=== PATIENT | female | born 1965 | race American Indian/Alaskan Native ===

== ENCOUNTER 2019-01-18 08:01 | Emergency (ER) | payer BC ==
[2019-01-18 08:34] LABS: Basophils % (Auto) 0.7 % (0.0-1.8); Eosinophils % (Auto) 0.4 % (0.0-4.3); Hematocrit 38.6 % (30.3-42.9); Lymphocytes % (Auto) 28.5 % (13.4-35.0); Mean Corpuscular HGB Conc 34 % (30-34); Mean Corpuscular Volume 83 fl (79-97); Monocytes # (Auto) 0.4 K/mm3 (0.0-0.8); Monocytes % (Auto) 11.9 % (0.0-7.3); Platelet Count 203 K/mm3 (140-440); Red Blood Count 4.64 M/mm3 (3.65-5.03); Red Cell Distribution Width 13.6 % (13.2-15.2)
[2019-01-18 08:44] LABS: Bilirubin,Urine NEG (Negative); Blood,Urine NEG (Negative); Color,Urine Yellow (Yellow); Mucus,Urine FEW /HPF; Protein,Urine <15 mg/dL mg/dL (Negative); RBC,Urine < 1.0 /HPF (0.0-6.0); Urobilinogen,Urine < 2.0 mg/dL (<2.0)
[2019-01-18 08:55] LABS: Alanine Aminotransferase 27 units/L (7-56); Albumin 4.2 g/dL (3.9-5); BUN/Creatinine Ratio 11; Blood Urea Nitrogen 9 mg/dL (7-17); Calcium 9.3 mg/dL (8.4-10.2); Hemolysis Index 13
--- NOTE | 2019-01-18 09:01 | Emergency Department Report ---
HPI - General Chief Complaint: Abdominal Pain Time Seen by Provider: 01/18/19 08:36 - HPI HPI: 53-year-old after [place] female presents to the emergency department with complaint of a 3-4 day history of some intermittent upper abdominal pain. It is a sharp, twisting-like sensation. She denies any nausea, vomiting, fever, dysuria, vaginal bleeding or discharge. The patient also says that earlier today she had some transient midsternal chest pain. She says that she can bring it on or worsens with certain type of movements of her arm or torso. The abdominal pain does not have any known aggravating or alleviating factors. She has not taken anything for her symptoms prior to presentation. She has a past medical history of hypertension, GERD and palpitations. Her primary care physician is Dr. Taya dobson. No recent travel or sick contacts at home. ED Past Medical Hx - Past Medical History Previous Medical History?: Yes Hx Hypertension: Yes - Surgical History Past Surgical History?: Yes Additional Surgical History: c section x 2 - Social History Smoking Status: Never Smoker Substance Use Type: Prescribed - Medications Home Medications: Home Medications Medication Instructions Recorded Confirmed Last Taken Type oxyCODONE /ACETAMINOPHEN [Percocet 1 tab PO Q6HR PRN #20 tablet 07/22/15 Unknown Rx 5/325] ED Review of Systems ROS: Stated complaint: STOMACH AND CHEST PAIN Other details as noted in HPI Comment: All other systems reviewed and negative Constitutional: denies: chills, fever Eyes: denies: eye pain, vision change ENT: denies: ear pain, throat pain Respiratory: denies: cough, shortness of breath Cardiovascular: chest pain. denies: edema Gastrointestinal: abdominal pain. denies: nausea, vomiting Genitourinary: denies: dysuria, discharge Musculoskeletal: denies: back pain, arthralgia Skin: denies: rash, lesions Neurological: denies: headache, weakness Physical Exam - Physical Exam Vital Signs: Vital Signs 01/18/19 08:04 Temperature 98.8 F Pulse Rate 88 Respiratory 18 Rate Blood Pressure 167/91 O2 Sat by Pulse 99 Oximetry Physical Exam: GENERAL: The patient is well-developed well-nourished. HENT: Normocephalic. Atraumatic. Patient has moist mucous membranes. EYES: Extraocular motions are intact. NECK: Supple. Trachea is midline. CHEST/LUNGS: Clear to auscultation. There is no respiratory distress noted. There is some mild reproducible pain to palpation of the chest wall. No crepitus or deformity. HEART/CARDIOVASCULAR: Regular. There is no tachycardia. There is no murmur. ABDOMEN: Abdomen is soft, nontender. No guarding. Patient has normal bowel sounds. There is no abdominal distention. SKIN: Skin is warm and dry. NEURO: The patient is awake, alert, and oriented. The patient is cooperative. The patient has no focal neurologic deficits. The patient has normal speech. MUSCULOSKELETAL: There is no tenderness or deformity. There is no evidence of acute injury. ED Course Vital Signs 01/18/19 08:04 Temperature 98.8 F Pulse Rate 88 Respiratory 18 Rate Blood Pressure 167/91 O2 Sat by Pulse 99 Oximetry ED Medical Decision Making - Lab Data Result diagrams: 01/18/19 08:15 01/18/19 08:15 - EKG Data -: EKG Interpreted by Me EKG shows normal: sinus rhythm, axis, intervals, QRS complexes, ST-T waves (flattening of T waves) Rate: normal - EKG Data When compared to previous EKG there are: previous EKG unavailable Interpretation: other (flattening of T waves) - Radiology Data Radiology results: report reviewed, image reviewed interpreted by me: Chest x-ray does not show any acute process. There are no pleural effusions, obvious pneumonia and there is no pneumothorax. Abdominal x-ray shows nonspecific nonobstructive bowel gas EXAM: US ABDOMEN COMPLETE HISTORY: Upper abdominal pain TECHNIQUE: Vaca scale imaging, duplex Doppler and color flow Doppler imaging are performed with a curvilinear transducer. COMPARISON: None available. FINDINGS: LIVER: The liver is normal in size. The hepatic parenchyma is mildly echogenic, which may represent mild fatty infiltration. There is no focal hepatic mass or perihepatic ascites seen. SPLEEN: The spleen is normal in size, measuring approximately 6.7 cm. There are no focal splenic lesions seen. GALLBLADDER: There is a trace amount of degenerative sludge within the gallbladder lumen. The gallbladder is otherwise normal in size and echogenicity. There is no gallbladder wall thickening, pericholecystic fluid, or sonographic Brooks's sign appreciated. BILE DUCTS: No intrahepatic or extrahepatic biliary ductal dilatation is seen. The common bile duct measures approximately 2.9 mm. KIDNEYS: Both kidneys are normal in size and echogenicity. The right kidney measures approximately 9.7 cm x 4.3 cm x 5.8 cm, and the left kidney measures approximately 10 cm x 5.9 cm x 4.9 cm. The renal cortical thickness is normal bilaterally, measuring approximately 1.5 cm bilaterally. There is no hydronephrosis, shadowing calculus, renal mass, or perinephric fluid collections seen. MISCELLANEOUS: The aorta (1.6 cm AP diameter) and inferior vena cava are normal in size and contour. The pancreas is grossly unremarkable. IMPRESSION: 1. Trace amount of echogenic sludge within otherwise normal-appearing gallbladder; no evidence for cholelithiasis. Consider follow-up evaluation with HIDA scan to rule out cystic duct obstruction and acute cholecystitis as clinically warranted. 2. Mildly echogenic hepatic parenchyma which may represent mild hepatic steatosis. 3. Otherwise unremarkable abdominal ultrasound. This document is electronically signed by Lisa Ta MD., January 18 2019 10:36:10 AM ET Transcribed By: ASM Dictated By: LISA TA Electronically Authenticated By: LISA TA Signed Date/Time: 01/18/19 1037 - Medical Decision Making This patient presents to the emergency department with a complaint of some right middle to upper abdominal pain that she describes as a twisting sensation. She also describes some previous chest pain that she had that has since resolved. Vital signs stable throughout her ED course. Patient's labs were unremarkable including CBC, metabolic panel, troponin, belly labsand urinalysis. Chest x-ray did not show any focal consolidation, pneumothorax, pneumonia, pleural effusions, or any other acute process. Abdominal x-ray shows nonspecific nonobstructive bowel gas. An upper abdominal ultrasound showed some mild residual possible gallbladder sludge but no obvious cholelithiasis and no signs of cholecystitis. The patient is pretty much asymptomatic prior to discharge. She was instructed to return to the emergency department with any return of her chest pain or any acute distress. Otherwise she will follow-up with Dr. Miller and was given a referral for cardiology. - Differential Diagnosis MO, costochondritis, GERD, cholelithiasis, cholecystitis, gastritis Critical Care Time: No Critical care attestation.: If time is entered above; I have spent that time in minutes in the direct care of this critically ill patient, excluding procedure time. ED Disposition Clinical Impression: Atypical chest pain Abdominal pain Qualifiers: Abdominal location: upper abdomen, unspecified Qualified Code(s): R10.10 - Upper abdominal pain, unspecified Hypertension Qualifiers: Hypertension type: essential hypertension Qualified Code(s): I10 - Essential (primary) hypertension Disposition: TO HOME OR SELFCARE Is pt being admited?: No Condition: Stable Instructions: Chest Pain (ED), Abdominal Pain (ED), Hypertension (ED) Additional Instructions: Please follow-up with your primary care physician in the next few days. I am giving you a referral for a local tripe washer, Dr. Marquez, to follow up regarding your previous chest pain. Return to the emergency department with any return of your chest pain, worsening of your symptoms, or with any acute distress. Referrals: KHANG MILLER MD [Primary Care Provider] - 2-3 Days ERROL MARQUEZ MD [Staff Physician] - 3-5 Days Time of Disposition: 12:19
--- NOTE | 2019-01-18 09:52 | XRay Report ---
PROCEDURE: XR CHEST ROUTINE 2V TECHNIQUE: PA and lateral chest radiographs were obtained. HISTORY: cp COMPARISONS: None. FINDINGS: Heart: Normal. Mediastinum/Vessels: Normal. Lungs/Pleural space: Normal. Bony thorax: No acute osseous abnormality. IMPRESSION: Normal examination. This document is electronically signed by German Yeboah MD., January 18 2019 09:50:12 AM ET
--- NOTE | 2019-01-18 10:37 | Ultrasound Report ---
EXAM: US ABDOMEN COMPLETE HISTORY: Upper abdominal pain TECHNIQUE: Vaca scale imaging, duplex Doppler and color flow Doppler imaging are performed with a cu rvilinear transducer. COMPARISON: None available. FINDINGS: LIVER: The liver is normal in size. The hepatic parenchyma is mildly echogenic, which may represent m ild fatty infiltration. There is no focal hepatic mass or perihepatic ascites seen. SPLEEN: The spleen is normal in size, measuring approximately 6.7 cm. There are no focal splenic le sions seen. GALLBLADDER: There is a trace amount of degenerative sludge within the gallbladder lumen. The gallbla dder is otherwise normal in size and echogenicity. There is no gallbladder wall thickening, perichol ecystic fluid, or sonographic Brooks's sign appreciated. BILE DUCTS: No intrahepatic or extrahepatic biliary ductal dilatation is seen. The common bile duct m easures approximately 2.9 mm. KIDNEYS: Both kidneys are normal in size and echogenicity. The right kidney measures approximately 9 .7 cm x 4.3 cm x 5.8 cm, and the left kidney measures approximately 10 cm x 5.9 cm x 4.9 cm. The quin l cortical thickness is normal bilaterally, measuring approximately 1.5 cm bilaterally. There is no h ydronephrosis, shadowing calculus, renal mass, or perinephric fluid collections seen. MISCELLANEOUS: The aorta (1.6 cm AP diameter) and inferior vena cava are normal in size and contour. The pancreas is grossly unremarkable. IMPRESSION: 1. Trace amount of echogenic sludge within otherwise normal-appearing gallbladder; no evidence for ch olelithiasis. Consider follow-up evaluation with HIDA scan to rule out cystic duct obstruction and a cute cholecystitis as clinically warranted. 2. Mildly echogenic hepatic parenchyma which may represent mild hepatic steatosis. 3. Otherwise unremarkable abdominal ultrasound. This document is electronically signed by Kristen Francisco MD., January 18 2019 10:36:10 AM ET
[2019-01-18 11:50] LABS: HCG Qualitative,Urine Negative (Negative)
[2019-01-18 12:31] VITALS: BP 136/86
--- NOTE | 2019-01-18 12:37 | XRay Report ---
PROCEDURE: XR ABDOMEN 2V TECHNIQUE: Supine and upright views of the abdomen HISTORY: abd pain COMPARISONS: No priors FINDINGS: There is a nonspecific bowel gas pattern. No evidence of bowel obstruction or free intraperitoneal air. No air-fluid levels. No significant pathologic calcifications. IMPRESSION: Nonspecific bowel gas pattern with no evidence of bowel obstruction or free intraperitoneal air.. This document is electronically signed by Keshav White MD., January 18 2019 12:35:23 PM ET
== END 2019-01-18 12:29 | disposition home or self-care (01) ==
LOC: ED 08:01
DX: R07.89 Other chest pain (principal); R10.10 Upper abdominal pain, unspecified; I10 Essential (primary) hypertension
CPT/HCPCS: 36415; 71046; 74019; 76700; 80053; 81001; 81025; 83690; 84484; 85025; 93005; 93010

== ENCOUNTER 2020-07-05 10:54 | Emergency (ER) | payer BC ==
--- NOTE | 2020-07-05 11:05 | Event Note ---
ED Screening Note Date of service: 07/05/20 Time: 11:05 ED Screening Note: Patient complains of chest pain x1 week This initial assessment/diagnostic orders/clinical plan/treatment(s) is/are subject to change based on patients health status, clinical progression and re- assessment by fellow clinical providers in the ED. Further treatment and workup at subsequent clinical providers discretion. Patient/guardian urged not to elope from the ED as their condition may be serious if not clinically assessed and managed. Initial orders include: Chest pain work-up
--- NOTE | 2020-07-05 11:30 | XRay Report ---
CHEST 2 VIEWS INDICATION: Chest Pain. COMPARISON: 01/18/2019 FINDINGS: Support devices: None. Heart: Within normal limits. Lungs/pleura: No acute air space or interstitial disease. No pneumothorax. Additional findings: None. IMPRESSION: No acute findings. Signer Name: Danny Nielsen Jr, MD Signed: 07/05/2020 11:25 AM Workstation Name: [id number]
[2020-07-05 11:41] LABS: Basophils % (Auto) 0.4 % (0.0-1.8); Eosinophils % (Auto) 0.2 % (0.0-4.3); Hematocrit 38.8 % (30.3-42.9); Hemoglobin 12.9 gm/dl (10.1-14.3); Lymphocytes # (Auto) 0.8 K/mm3 (1.2-5.4); Lymphocytes % (Auto) 22.2 % (13.4-35.0); Mean Corpuscular HGB Conc 33 % (30-34); Mean Corpuscular Volume 85 fl (79-97); Monocytes # (Auto) 0.4 K/mm3 (0.0-0.8); Monocytes % (Auto) 10.5 % (0.0-7.3); Platelet Count 212 K/mm3 (140-440); Red Blood Count 4.54 M/mm3 (3.65-5.03); Red Cell Distribution Width 13.3 % (13.2-15.2)
[2020-07-05 12:02] LABS: Alanine Aminotransferase 12 units/L (7-56); Albumin 4.4 g/dL (3.9-5); BUN/Creatinine Ratio 13; Blood Urea Nitrogen 10 mg/dL (7-17); Calcium 9.4 mg/dL (8.4-10.2); Hemolysis Index 6
--- NOTE | 2020-07-05 12:56 | Emergency Department Report ---
ED Chest Pain HPI - General Chief Complaint: Chest Pain Stated Complaint: CHEST PAIN PUI?: No Time Seen by Provider: 07/05/20 11:04 Source: patient Mode of arrival: Ambulatory Limitations: No Limitations - History of Present Illness Initial Comments: Chief complaint: Chest pain HPI: This is a 54-year-old female with history of hypertension, GERD and palpitations who presents with chest pain for several days. Chest pain began 2 days ago. SHe feels better at night. Pain is worse during the day. No association with exertion or movement. No associated with inspiration. Pain is mild sharp in nature. Pain is transient. At times the pain radiates to her back. She does not have any pain or discomfort at this time. Patient has slight cough and scratchy throat currently. On June 08 patient was diagnosed with Covid 19 infection. She was treated [facility] the [facility]. She had a known sick contact which prompted the testing. She had mild symptoms. At that time she only had nasal congestion as well as loss of taste and smell. She currently denies shortness of breath. MD Complaint: chest pain -: Gradual, days(s) (2) Onset: during rest Pain Location: substernal Pain Radiation: back Severity: moderate Severity scale (0 -10): 8 Quality: sharp Consistency: now resolved Improves With: nothing Worsens With: nothing Treatments Prior to Arrival: none - Related Data Previous Rx's Medication Instructions Recorded Last Taken Type oxyCODONE /ACETAMINOPHEN [Percocet 1 tab PO Q6HR PRN #20 tablet 07/22/15 Unknown Rx 5/325] Allergies Allergy/AdvReac Type Severity Reaction Status Date / Time No Known Allergies Allergy Verified 09/06/15 02:37 Heart Score - HEART Score History: Slightly suspicious EKG: Normal Age: 45-65 Risk factors: 1-2 risk factors Troponin: < normal limit HEART Score: 2 ED Review of Systems ROS: Stated complaint: CHEST PAIN Other details as noted in HPI Comment: All other systems reviewed and negative Constitutional: denies: fever, malaise Respiratory: cough. denies: shortness of breath, wheezing Cardiovascular: chest pain Gastrointestinal: denies: abdominal pain, nausea, vomiting ED Past Medical Hx - Past Medical History Previous Medical History?: Yes Hx Hypertension: Yes Hx GERD: Yes Additional medical history: heart palpatations - Surgical History Additional Surgical History: c section x 2 - Social History Smoking Status: Never Smoker Substance Use Type: None - Medications Home Medications: Home Medications Medication Instructions Recorded Confirmed Last Taken Type oxyCODONE /ACETAMINOPHEN [Percocet 1 tab PO Q6HR PRN #20 tablet 07/22/15 Unknown Rx 5/325] ED Physical Exam - General Limitations: No Limitations General appearance: alert, in no apparent distress - Head Head exam: Present: atraumatic, normocephalic - Eye Eye exam: Present: normal appearance - ENT ENT exam: Present: mucous membranes moist - Neck Neck exam: Present: normal inspection, full ROM - Respiratory Respiratory exam: Present: normal lung sounds bilaterally. Absent: respiratory distress, wheezes, rales, rhonchi - Cardiovascular Cardiovascular Exam: Present: regular rate, normal rhythm, normal heart sounds. Absent: systolic murmur, diastolic murmur, rubs, gallop - GI/Abdominal GI/Abdominal exam: Present: soft, normal bowel sounds. Absent: distended, tenderness, guarding, rebound - Extremities Exam Extremities exam: Present: normal inspection - Neurological Exam Neurological exam: Present: alert, oriented X3 - Psychiatric Psychiatric exam: Present: normal affect, normal mood - Skin Skin exam: Present: warm, dry, intact, normal color. Absent: rash ED Course Vital Signs 07/05/20 07/05/20 07/05/20 10:58 12:40 12:43 Temperature 98.3 F Pulse Rate 107 H 110 H Respiratory 18 10 L 13 Rate Blood Pressure Blood Pressure 156/87 [Right] O2 Sat by Pulse 99 99 Oximetry 07/05/20 12:45 Temperature Pulse Rate 99 H Respiratory 12 Rate Blood Pressure 140/83 Blood Pressure [Right] O2 Sat by Pulse Oximetry LALA score - Lala Score Age > 65: (0) No Aspirin use within the Past 7 Days: (0) No 3 or more CAD Risk Factors: (0) No 2 or more Angina events in past 24 hrs: (0) No Known CAD with more than 50% Stenosis: (0) No Elevated Cardiac Markers: (0) No ST Deviation Greater than 0.5mm: (0) No LALA Score: 0 ED Medical Decision Making - Lab Data Result diagrams: 07/05/20 11:26 07/05/20 11:26 Laboratory Results - last 24 hr 07/05/20 07/05/20 11:26 11:26 WBC 3.8 L RBC 4.54 Hgb 12.9 Hct 38.8 MCV 85 MCH 28 MCHC 33 RDW 13.3 Plt Count 212 Lymph % (Auto) 22.2 Brule % (Auto) 10.5 H Eos % (Auto) 0.2 Baso % (Auto) 0.4 Lymph # (Auto) 0.8 L Brule # (Auto) 0.4 Eos # (Auto) 0.0 Baso # (Auto) 0.0 Seg Neutrophils % 66.7 Seg Neutrophils # 2.5 Sodium 139 Potassium 3.6 Chloride 102.4 Carbon Dioxide 26 Anion Gap 14 BUN 10 Creatinine 0.8 Estimated GFR > 60 BUN/Creatinine Ratio 13 Glucose 112 H Calcium 9.4 Total Bilirubin 0.80 AST 20 ALT 12 Alkaline Phosphatase 72 Troponin T < 0.010 Total Protein 8.2 Albumin 4.4 Albumin/Globulin Ratio 1.2 Laboratory Tests 07/05/20 07/05/20 07/05/20 11:26 11:26 13:01 WBC 3.8 L RBC 4.54 Hgb 12.9 Hct 38.8 MCV 85 MCH 28 MCHC 33 RDW 13.3 Plt Count 212 Lymph % (Auto) 22.2 Brule % (Auto) 10.5 H Eos % (Auto) 0.2 Baso % (Auto) 0.4 Lymph # (Auto) 0.8 L Brule # (Auto) 0.4 Eos # (Auto) 0.0 Baso # (Auto) 0.0 Seg Neutrophils % 66.7 Seg Neutrophils # 2.5 Sodium 139 Potassium 3.6 Chloride 102.4 Carbon Dioxide 26 Anion Gap 14 BUN 10 Creatinine 0.8 Estimated GFR > 60 BUN/Creatinine Ratio 13 Glucose 112 H Calcium 9.4 Total Bilirubin 0.80 AST 20 ALT 12 Alkaline Phosphatase 72 Troponin T < 0.010 < 0.010 Total Protein 8.2 Albumin 4.4 Albumin/Globulin Ratio 1.2 - EKG Data -: EKG Interpreted by Me EKG shows normal: sinus rhythm, axis, intervals, QRS complexes Rate: normal - EKG Data Interpretation: nonspecific ST-T wave shivani 07/05/20 12:56 EKG obtained 1108 EKG interpreted by me Normal sinus rhythm rate 95 bpm normal axis normal intervals no ST elevation nonspecific T wave pattern - Radiology Data Radiology results: report reviewed, image reviewed CHEST 2 VIEWS INDICATION: Chest Pain. COMPARISON: 01/18/2019 FINDINGS: Support devices: None. Heart: Within normal limits. Lungs/pleura: No acute air space or interstitial disease. No pneumothorax. Additional findings: None. IMPRESSION: No acute findings. - Medical Decision Making Mrs. Rosales is a 54-year-old female with history of GERD hypertension palpitations. There is no reported family history of coronary artery disease. Family history includes hyperlipidemia and diabetes mellitus. Heart score 2. No persistent pain or symptoms to indicate pulmonary embolism. No evidence of pneumonia or pneumothorax on chest radiograph. I do not suspect emergent cause of chest pain such as ACS, PE, pneumothorax, pneumonia. No signs of pericarditis on EKG. Patient is PERC negative Troponin x2 -. Patient wanted reassurance that she did not have any serious sequela from COVID- 19 infection. I have reviewed all labs EKG chest radiograph. CBC chemistry within normal limits. Patient is discharged home Critical care attestation.: If time is entered above; I have spent that time in minutes in the direct care of this critically ill patient, excluding procedure time. ED Disposition Clinical Impression: Chest pain, History of 2019 novel coronavirus disease (COVID-19) Disposition: DC-01 TO HOME OR SELFCARE Is pt being admited?: No Does the pt Need Aspirin: No Condition: Stable Instructions: Chest Pain (ED), Nonspecific Chest Pain, Adult Referrals: PRIMARY CARE, [Primary Care Provider] - 3-5 Days Forms: Work/School Release Form(ED)
[2020-07-05 14:53] VITALS: BP 130/82
== END 2020-07-05 14:52 | disposition home or self-care (01) ==
LOC: ED 10:54
DX: R07.9 Chest pain, unspecified (principal); I10 Essential (primary) hypertension; K21.9 Gastro-esophageal reflux disease without esophagitis; Z79.899 Other long term (current) drug therapy; Z98.890 Other specified postprocedural states; Z86.19 Personal history of other infectious and parasitic diseases
CPT/HCPCS: 36415; 71046; 80053; 84484; 85025; 93005

== ENCOUNTER 2022-01-15 19:54 | Emergency (ER) | payer BC ==
[2022-01-16] MEDS ORDERED: IBUPROFEN 600 MG TAB PO ONE (00:54)
[2022-01-16] MEDS ORDERED: ACETAMINOPHEN 500 MG TAB PO ONE (00:54)
--- NOTE | 2022-01-16 02:28 | Emergency Department Report ---
ED Extremity Problem HPI - General Chief complaint: Extremity Problem,Nontraumatic Stated complaint: RT LEG/KNEE PAIN Source: patient Mode of arrival: Ambulatory Limitations: No Limitations - History of Present Illness Initial comments: Patient is a 56-year-old -[place] female with history of hypertension and GERD who presents to the ED with complaint of acute onset persistent nontraumatic posterior right calf and right popliteal knee pain for the last 8 hours. Patient states that the pain has been constant and persistent and is worse with movement. Patient denies fall, traumatic injury, heavy lifting, nausea and vomiting, chest pain or shortness of breath, heart cough, back pain, fever and chills or hip pain. MD Complaint: extremity pain (Posterior right knee and calf pain), other (Posterior right knee and right lower leg pain) -: Sudden, hour(s) (8) Location: right, lower extremity (Posterior right knee and right lower leg pain), knee (right) History of Same: No -: Yes arthralgia Radiation: distal Severity scale (0 -10): 5 Quality: aching, sharp Consistency: constant Improves with: nothing Worsens with: weight bearing, walking, palpation Associated Symptoms: denies other symptoms, arthralgias (Posterior right knee and right lower leg pain). denies: chest pain, shortness of breath, fever, myalgias, rash - Related Data Previous Rx's Medication Instructions Recorded Last Taken Type oxyCODONE /ACETAMINOPHEN [Percocet 1 tab PO Q6HR PRN #20 tablet 07/22/15 Unknown Rx 5/325] Baclofen 20 mg PO Q12H #30 tab 01/16/22 Unknown Rx Ibuprofen [Motrin] 600 mg PO Q8H PRN #30 tablet 01/16/22 Unknown Rx traMADoL [Ultram] 50 mg PO Q6HR PRN #10 tablet 01/16/22 Unknown Rx Allergies Allergy/AdvReac Type Severity Reaction Status Date / Time No Known Allergies Allergy Verified 09/06/15 02:37 ED Review of Systems ROS: Stated complaint: RT LEG/KNEE PAIN Other details as noted in HPI Constitutional: denies: chills, fever Eyes: denies: eye pain, eye discharge, vision change ENT: denies: ear pain, throat pain Respiratory: denies: cough, shortness of breath, wheezing Cardiovascular: denies: chest pain, palpitations Endocrine: no symptoms reported Gastrointestinal: denies: abdominal pain, nausea, vomiting, diarrhea Genitourinary: denies: urgency, dysuria, discharge Musculoskeletal: joint swelling, arthralgia ( posterior right lower leg and right knee pain). denies: back pain Skin: denies: rash, lesions Neurological: denies: headache, weakness, paresthesias Psychiatric: denies: anxiety, depression Hematological/Lymphatic: denies: easy bleeding, easy bruising ED Past Medical Hx - Past Medical History Previous Medical History?: Yes Hx Hypertension: Yes Hx GERD: Yes Additional medical history: heart palpatations - Surgical History Past Surgical History?: Yes Additional Surgical History: c section x 2 - Social History Smoking Status: Never Smoker Substance Use Type: None - Medications Home Medications: Home Medications Medication Instructions Recorded Confirmed Last Taken Type oxyCODONE /ACETAMINOPHEN [Percocet 1 tab PO Q6HR PRN #20 tablet 07/22/15 Unknown Rx 5/325] Baclofen 20 mg PO Q12H #30 tab 01/16/22 Unknown Rx Ibuprofen [Motrin] 600 mg PO Q8H PRN #30 tablet 01/16/22 Unknown Rx traMADoL [Ultram] 50 mg PO Q6HR PRN #10 tablet 01/16/22 Unknown Rx ED Physical Exam - General Limitations: No Limitations General appearance: alert, in no apparent distress - Head Head exam: Present: atraumatic, normocephalic, normal inspection - Eye Eye exam: Present: normal appearance, PERRL, EOMI Pupils: Present: normal accommodation - ENT ENT exam: Present: normal exam, normal orophraynx, mucous membranes moist, TM's normal bilaterally, normal external ear exam - Neck Neck exam: Present: normal inspection, full ROM. Absent: tenderness - Respiratory Respiratory exam: Present: normal lung sounds bilaterally. Absent: respiratory distress, wheezes, rales, stridor, chest wall tenderness, accessory muscle use, decreased breath sounds, prolonged expiratory - Cardiovascular Cardiovascular Exam: Present: regular rate, normal rhythm, normal heart sounds. Absent: systolic murmur, diastolic murmur, rubs, gallop - GI/Abdominal GI/Abdominal exam: Present: soft, normal bowel sounds. Absent: tenderness, guarding, rebound, hyperactive bowel sounds, hypoactive bowel sounds, organomegaly - Extremities Exam Extremities exam: Present: normal inspection, full ROM, tenderness (Palpable posterior popliteal and right lower leg tenderness), normal capillary refill, joint swelling, calf tenderness. Absent: pedal edema - Back Exam Back exam: Present: normal inspection, full ROM. Absent: tenderness, CVA tenderness (R), CVA tenderness (L), muscle spasm, paraspinal tenderness, vertebral tenderness - Neurological Exam Neurological exam: Present: alert, oriented X3, CN II-XII intact, normal gait, reflexes normal - Psychiatric Psychiatric exam: Present: normal affect, normal mood - Skin Skin exam: Present: warm, dry, intact, normal color. Absent: rash ED Course Vital Signs 01/15/22 01/16/22 01/16/22 20:20 01:32 01:33 Temperature 98.6 F Pulse Rate 69 Respiratory 18 16 16 Rate Blood Pressure 151/90 O2 Sat by Pulse 96 Oximetry ED Medical Decision Making - Radiology Data Radiology results: report reviewed, [place] [address] Vascular Lab Report Signed Patient: MARY MEHTA MR#: [id number] 93 : 1965 Acct:[id number] Age/Sex: 56 / F ADM Date: 01/15/22 Loc: ED Attending Dr: Ordering Physician: CLAUDIO PRESTON Date of Service: 01/16/22 Procedure(s): VL venous duplex LE RT Accession Number(s): [id number] cc: CLAUDIO PRESTON DUPLEX DOPPLER LOWER EXTREMITY VEINS, RIGHT INDICATION / CLINICAL INFORMATION: pain in right calf and popliteal area. TECHNIQUE: Duplex doppler imaging was performed through the veins of the right lower extremity using venous compression and other maneuvers. COMPARISON: None available. FINDINGS: RIGHT COMMON FEMORAL VEIN: Negative. RIGHT FEMORAL VEIN: Negative. RIGHT POPLITEAL VEIN: Negative. RIGHT CALF VEINS: Negative. ADDITIONAL FINDINGS: None. IMPRESSION: 1. No sonographic evidence for DVT in the right lower extremity. Signer Name: Hunter Wasserman MD Signed: 01/16/2022 3:58 AM Workstation Name: [id number] Transcribed By: TL Dictated By: Hunter Wasserman MD Electronically Authenticated By: Hunter Wasserman MD Signed Date/Time: 01/16/22357 DD/ 7 TD/TT: - Medical Decision Making This is a 56-year-old -[place] female with history of hypertension and GERD who presents to the ED with complaint of acute onset persistent nontraumatic posterior right calf and right popliteal knee pain for the last 8 hours. Patient states that the pain has been constant and persistent and is worse with movement. In the ED, patient is alert and oriented x3 and is not in any distress. Patient was treated for pain in the ED. Doppler right lower leg ultrasound was performed and it showed no sonographic evidence of VTE. Patient symptoms are likely musculoskeletal muscle strain. Patient was therefore discharged home on pain medications and advised to follow-up with her primary care physician in 7 to 10 days for reevaluation or return to the ED immediately if symptoms get worse. - Differential Diagnosis DVT; muscle strain; Hankins's cyst; degenerative joint disease; Critical care attestation.: If time is entered above; I have spent that time in minutes in the direct care of this critically ill patient, excluding procedure time. ED Disposition Clinical Impression: Pain of right knee and lower leg Muscle strain of right lower extremity Qualifiers: Encounter type: initial encounter Qualified Code(s): S86.911A - Strain of unspecified muscle(s) and tendon(s) at lower leg level, right leg, initial encounter Disposition: HOME / SELF CARE / HOMELESS Is pt being admited?: No Does the pt Need Aspirin: No Condition: Stable Instructions: Muscle Strain, [id number], Musculoskeletal Pain, Acute Knee Pain, Adult, [id number] Additional Instructions: The Doppler ultrasound of right leg showed no evidence of blood clot or DVT. Your symptoms are likely due to muscle strain or muscle spasm of right leg. Therefore take medications as needed for pain and muscle spasm, follow-up with your primary care physician in 7 to 10 days for reevaluation. Return to the ED immediately if symptoms get worse. Prescriptions: Baclofen 20 mg PO Q12H #30 tab Ibuprofen [Motrin] 600 mg PO Q8H PRN #30 tablet PRN Reason: Pain traMADoL [Ultram] 50 mg PO Q6HR PRN #10 tablet PRN Reason: Pain Referrals: ROCIO BURRELL MD [Primary Care Provider] - 7-10 days Forms: Work/School Release Form(ED) Time of Disposition: 05:55 Print Language: KAZAKH
--- NOTE | 2022-01-16 04:03 | Vascular Lab Report ---
DUPLEX DOPPLER LOWER EXTREMITY VEINS, RIGHT INDICATION / CLINICAL INFORMATION: pain in right calf and popliteal area. TECHNIQUE: Duplex doppler imaging was performed through the veins of the right lower extremity using venous comp ression and other maneuvers. COMPARISON: None available. FINDINGS: RIGHT COMMON FEMORAL VEIN: Negative. RIGHT FEMORAL VEIN: Negative. RIGHT POPLITEAL VEIN: Negative. RIGHT CALF VEINS: Negative. ADDITIONAL FINDINGS: None. IMPRESSION: 1. No sonographic evidence for DVT in the right lower extremity. Signer Name: Hunter Wasserman MD Signed: 01/16/2022 3:58 AM Workstation Name: [id number]
[2022-01-16 07:48] VITALS: BP 128/86
== END 2022-01-16 07:46 | disposition home or self-care (01) ==
LOC: ED 19:54
DX: S86.911A Strain of unspecified muscle(s) and tendon(s) at lower leg level, right leg, initial encounter (principal); M25.561 Pain in right knee; I10 Essential (primary) hypertension; K21.9 Gastro-esophageal reflux disease without esophagitis; Z79.899 Other long term (current) drug therapy; X58.XXXA Exposure to other specified factors, initial encounter; Y93.89 Activity, other specified; Y92.89 Other specified places as the place of occurrence of the external cause; Y99.8 Other external cause status
CPT/HCPCS: 99283